=== PATIENT | female | born 1945 | race Two or more races ===

== ENCOUNTER 2017-01-07 01:20 | Inpatient (IN) | payer OTHER ==
[~2017-01-07] VITALS: Ht 165.1 cm; Wt 80.2 kg
[2017-01-07 02:56] LABS: Basophils # (auto) 0 uL; Basophils % (auto) 0.3 % (0.0-2.0); Eosinophils # (auto) 0 uL; Eosinophils % (auto) 0.1 % (0.0-7.0); Hematocrit 34.1 % (36.0-46.0); Hemoglobin 11.9 g/dL (12.2-16.2); Lymphocytes % (auto) 13.6 % (10.0-50.0); Mean Corpuscular Hemoglobin 29.5 pg (28.0-32.0); Mean Corpuscular Hgb Conc. 34.9 g/dL (32.0-36.0); Mean Corpuscular Volume 84.5 fL (80.0-100.0); Mean Platelet Volume 7.4 fL (6.9-10.8); Monocytes # (auto) 0.3 uL; Monocytes % (auto) 4.1 % (0.0-12.0); Neutrophils # (auto) 6.3 uL; Neutrophils % (auto) 81.9 % (37.0-80.0); Platelet Count (auto) 261 10^3/uL (140-450); Red Cell Distribution Width 13.8 % (11.8-14.3); White Blood Cell 7.7 10^3/uL (4.4-10.8)
[2017-01-07] MEDS ORDERED: SODIUM CHLORIDE 0.9% 1,000 ML IV ONE (03:53)
[2017-01-07 04:48] LABS: Albumin 4.1 g/dL (3.4-5.0); BUN/Creatinine Ratio 17.9; Bilirubin, Total 0.5 mg/dL (0.2-1.0); Calcium 9.4 mg/dL (8.5-10.1); Potassium 3.4 mmol/L (3.5-5.1); Total Protein 8.1 g/dL (6.4-8.2)
[2017-01-07 04:51] LABS: INR 1.08 (0.9-1.15); Partial Thromboplastin Time 30.3 sec (22.64-33.71); Prothrombin Time 11.8 sec (9.37-12.3)
[2017-01-07] MEDS ORDERED: LORazepam 2MG/ML-1ML VIAL IV PRN (10:00)
[2017-01-07] MEDS ORDERED: MORPHINE SULFATE 10 MG/ML INJ 1ML SDV IV PRN ×2 (10:00)
[2017-01-07] MEDS ORDERED: NITROGLYCERIN 0.4 MG SL TAB SL PRN (10:00)
[2017-01-07] MEDS ORDERED: SOD CHL 0.9%/ KCL 20MEQ 1,000 ML IV SCH (10:00)
[2017-01-07] MEDS ORDERED: DEXTROSE (50%) 50ML SYRG IV PRN (10:00)
[2017-01-07] MEDS ORDERED: SODIUM CHLORIDE 0.9% 1,000 ML IV SCH (11:15)
[2017-01-07] MEDS: MORPHINE SULFATE 10 MG/ML INJ 1ML SDV IV PRN ×2 (12:31→16:41)
[2017-01-07] MEDS: FAMOTIDINE (10MG/ML) 2ML VL IV SCH ×2 (12:32→21:22)
[2017-01-07] MEDS: PROMETHAZINE HCL 25 MG/ML 1ML IV PRN ×2 (12:33→16:41)
[2017-01-07] MEDS: metroNIDAZOLE 500MG/100ML 100 ML IV SCH ×3 (12:33→23:31)
[2017-01-07] MEDS: ACCU-CHEK COMFORT CURVE STRIP VI SCH ×3 (12:33→23:08)
[2017-01-07] MEDS ORDERED: METF-371 PO (12:44)
[2017-01-07] MEDS ORDERED: LOSA100T27 PO (12:44)
[2017-01-07] MEDS ORDERED: PRAV20TA3 PO (12:44)
[2017-01-07] MEDS ORDERED: LEVO50TA7 PO (12:44)
[2017-01-07] MEDS ORDERED: CARV25TA PO (12:44)
[2017-01-07] MEDS ORDERED: ASPI81CH43 PO (12:44)
[2017-01-07 12:59] LABS: Hematocrit 33.6 % (36.0-46.0); Hemoglobin 11.8 g/dL (12.2-16.2)
[2017-01-07] MEDS: InsuLIN REG 1unit/0.01ml Soln (100units/ml) SC SCH ×3 (13:00→23:08)
[2017-01-07 13:01] VITALS: BP 155/83
[2017-01-07 15:20] LABS: BUN/Creatinine Ratio 16.3; Calcium 8.8 mg/dL (8.5-10.1); Potassium 3.1 mmol/L (3.5-5.1)
[2017-01-07 16:33] LABS: Hematocrit 32.5 % (36.0-46.0); Hemoglobin 11.4 g/dL (12.2-16.2)
[2017-01-07 17:00] VITALS: BP 117/76
[2017-01-07] MEDS: SODIUM CHLORIDE 0.9% 1,000 ML IV SCH (17:45)
[2017-01-07 17:58] VITALS: BP 119/64
[2017-01-07 21:41] LABS: Urine Bilirubin Negative (Negative); Urine Blood Negative /uL (Negative); Urine Color Yellow (Yellow); Urine Glucose TRACE mg/dL (Normal); Urine Ketone Negative (Negative); Urine Nitrite Negative (Negative); Urine RBC 2 /hpf (0 - 4); Urine Squamous Epithelial Cell MOD /hpf (<5); Urine Urobilinogen Normal (Negative); Urine pH 6.5 (5.0-8.0)
[2017-01-07 21:54] VITALS: BP 127/65
[2017-01-08 01:17] LABS: Hematocrit 31.1 % (36.0-46.0); Hemoglobin 10.7 g/dL (12.2-16.2)
[2017-01-08] MEDS: SODIUM CHLORIDE 0.9% 1,000 ML IV SCH ×2 (03:00→15:16)
[2017-01-08 05:29] VITALS: BP 117/59
[2017-01-08] MEDS: metroNIDAZOLE 500MG/100ML 100 ML IV SCH ×3 (05:31→17:30)
[2017-01-08] MEDS: InsuLIN REG 1unit/0.01ml Soln (100units/ml) SC SCH ×3 (05:32→17:30)
[2017-01-08] MEDS: ACCU-CHEK COMFORT CURVE STRIP VI SCH ×3 (05:32→17:30)
[2017-01-08 07:14] LABS: Albumin 3.5 g/dL (3.4-5.0); BUN/Creatinine Ratio 17.4; Bilirubin, Total 0.6 mg/dL (0.2-1.0); Total Protein 6.9 g/dL (6.4-8.2)
[2017-01-08 07:16] LABS: Basophils # (auto) 0 uL; Basophils % (auto) 0.4 % (0.0-2.0); Eosinophils # (auto) 0 uL; Eosinophils % (auto) 0.5 % (0.0-7.0); Hematocrit 31.1 % (36.0-46.0); Hemoglobin 10.8 g/dL (12.2-16.2); Lymphocytes # (auto) 2.1 uL; Lymphocytes % (auto) 37.3 % (10.0-50.0); Mean Corpuscular Hemoglobin 29.7 pg (28.0-32.0); Mean Corpuscular Hgb Conc. 34.8 g/dL (32.0-36.0); Mean Corpuscular Volume 85.4 fL (80.0-100.0); Mean Platelet Volume 7.7 fL (6.9-10.8); Monocytes # (auto) 0.7 uL; Monocytes % (auto) 12.6 % (0.0-12.0); Neutrophils # (auto) 2.7 uL; Neutrophils % (auto) 49.2 % (37.0-80.0); Nucleated Red Blood Cells % 0.1 %; Platelet Count (auto) 232 10^3/uL (140-450); Red Cell Distribution Width 13.8 % (11.8-14.3); White Blood Cell 5.5 10^3/uL (4.4-10.8)
[2017-01-08 07:25] LABS: Potassium 2.8 mmol/L (3.5-5.1)
[2017-01-08] MEDS ORDERED: cefTRIAXone 1GM/50ML D5W 50 ML IV SCH ×2 (09:00→10:00)
[2017-01-08] MEDS: FAMOTIDINE (10MG/ML) 2ML VL IV SCH (09:22)
[2017-01-08] MEDS: POTASSIUM CHL 20MEQ/100ML 100 ML IV SCH ×2 (09:35→12:45)
[2017-01-08 10:05] VITALS: BP 117/70
[2017-01-08 12:58] VITALS: BP 116/55
[2017-01-08 18:06] VITALS: BP 141/69
== END 2017-01-08 18:30 | disposition home or self-care (01) | DRG 392 ==
LOC: EDUNIT# 01:20 → ER 01:29 → TELE 01:30 → TELE-E-ADS 10:40 → TELE-WESTW 12:38
PROVIDERS: ADMIT Internal Medicine; ATTEND Internal Medicine
DX: R11.2 Nausea with vomiting, unspecified (principal); D63.8 Anemia in other chronic diseases classified elsewhere; E11.9 Type 2 diabetes mellitus without complications; E87.1 Hypo-osmolality and hyponatremia; E05.90 Thyrotoxicosis, unspecified without thyrotoxic crisis or storm; E03.9 Hypothyroidism, unspecified; E87.6 Hypokalemia; T50.995A Adverse effect of other drugs, medicaments and biological substances, initial encounter; E78.5 Hyperlipidemia, unspecified; I10 Essential (primary) hypertension; Z83.3 Family history of diabetes mellitus; Z90.710 Acquired absence of both cervix and uterus; Y92.89 Other specified places as the place of occurrence of the external cause
CPT/HCPCS: 36415; 70450; 74176; 80048; 80053; 80061; 81001; 82150; 82270; 82378; 82962; 83036; 83690; 84484; 85014; 85018; 85025; 85045; 85610; 85652; 85730; 86141; 87493; 93005; 96360; J0696; J1815; J3480; J3490